=== PATIENT | male | born 1960 | race Caucasian/White ===

== ENCOUNTER 2017-11-04 23:40 | Emergency (ER) | payer OTHER ==
[~2017-11-04 23:40] MED LIST: Norepinephrine 4 MG/4 ML VIAL ONE; Sodium Chloride 0.9% 1,000 ML BAG ONE; Sodium Chloride 0.9% 500 ML BAG ONE
[2017-11-05] MEDS ORDERED: Ibuprofen 800 MG TAB ONE (00:16)
[2017-11-05 00:44] LABS: ALT (SGPT) 12 U/L (8-55); AST (SGOT) 15 U/L (5-34); Albumin 3.3 g/dL (3.5-5.0); Alkaline Phosphatase 66 U/L (40-150); Anion Gap 21 mmol/L (10-20); BUN (Urea Nitrogen) 37 mg/dL (8.4-25.7); Bilirubin, Total 0.9 mg/dL (0.2-1.2); CK (CPK) 664 U/L (30-200); Calc. Creatinine Clearance 0 mL/min (70-130); Calcium 7.6 mg/dL (7.8-10.44); Carbon Dioxide 19 mmol/L (22-29); Chloride 97 mmol/L (98-107); Estimated GFR-MDRD 27; Globulin 1.8 g/dL (2.4-3.5); Glucose 426 mg/dL (70-105); Potassium 3.8 mmol/L (3.5-5.1); Protein, Total 5.1 g/dL (6.0-8.3); Sodium 133 mmol/L (136-145)
[2017-11-05 00:45] LABS: Acetaminophen Less than 6.0 mcg/mL (10.0-30.0); Alcohol Less than 10 mg/dL (Less than 10); CKMB 1.5 ng/mL (0-6.6); Salicylate Less than 8.0 mg/dL (15.0-30.0); Troponin I 0.017 ng/mL (< 0.028)
[2017-11-05] MEDS ORDERED: Norepinephrine 4 MG/4 ML VIAL ONE (00:55)
[2017-11-05 01:02] LABS: Anisocytosis SLIGHT = 6-15 cells (100X) (0-5/hpf); Hemoglobin 10.1 g/dL (14.0-18.0); Lymphocytes 18 % (21-51); MDiff Complete? YES; Mean Corpuscular HGB CONC 32.5 g/dL (32.0-36.0); Mean Corpuscular Hemoglobin 23.8 pg (27.0-31.0); Mean Corpuscular Volume 73.3 fl (80.0-94.0); Mean Platelet Volume 8.1 fL (7.4-10.4); Microcytosis SLIGHT = 6-15 cells (100X) (0-5/hpf); Monocytes 6 % (0-10); Neutrophil 76 % (42-75); PLT Morphology Comment Appears Adequate; Platelet Count 217 thou/uL (130-400); Poikilocytosis SLIGHT = 6-15 cells (100X) (0-5/hpf); RBC Distribution Width 17.9 % (11.5-14.5); RBC Morphology Abnormal; Red Blood Cell (RBC) Count 4.23 mill/uL (4.70-6.10); White Blood Cell (WBC) Count 10.6 thou/uL (4.8-10.8)
[2017-11-05 01:07] LABS: Prothrombin Time 16.1 SEC (12.0-14.7)
[2017-11-05 01:08] LABS: D-Dimer Test 2.64 *mcg/mL (0.27-0.43); PTT 37.7 SEC (22.9-36.1)
[2017-11-05 01:10] LABS: INR-International Normal Ratio 1.3
--- NOTE | 2017-11-05 07:57 | RAD ---
CHEST 1 VIEW: Date: 11/04/17 HISTORY: Altered mental status. COMPARISON: None. FINDINGS: Heart size mildly enlarged. Lungs are slightly hypoinflated with vascular crowding and accentuation o f the pulmonary vasculature. No pneumothorax. No large effusion. IMPRESSION: Mild cardiomegaly and pulmonary venous congestion. POS: C
--- NOTE | 2017-11-05 07:59 | RAD ---
LEFT FOOT 3 VIEWS: HISTORY: Fever. COMPARISON: None. FINDINGS: There are advanced mid foot neuropathic changes. There is collapse of the lateral navicular with sub chondral cyst formation. There are erosions of the talar head and neck with plantar displacement of the talonavicular joint. Large erosions of the medial aspect of the mid foot. There is soft tissue swelling and ulcer formati on. There is also chronic dorsal displacement of the great toe metatarsal phalangeal joint. Prior a mputation of the 2nd toe metacarpal phalangeal joint. IMPRESSION: Severe destructive and erosive changes of the medial aspect of the mid foot with overlying soft tissu e swelling as well as ulcer formation concerning for osteomyelitis superimposed upon neuropathic arth ropathy. MRI may be beneficial if there is clinical uncertainty. POS: DEVAN
[2017-11-05 11:09] LABS: Hemoglobin A1c 5.9 % (4.0-6.0)
== END 2017-11-05 01:10 | disposition short-term general hospital (02) ==
LOC: MADERS 23:40
DX: A41.9 Sepsis, unspecified organism (principal); R65.21 Severe sepsis with septic shock; R41.82 Altered mental status, unspecified; E10.10 Type 1 diabetes mellitus with ketoacidosis without coma; A49.02 Methicillin resistant Staphylococcus aureus infection, unspecified site; K21.9 Gastro-esophageal reflux disease without esophagitis; E78.5 Hyperlipidemia, unspecified; I10 Essential (primary) hypertension; F32.9 Major depressive disorder, single episode, unspecified; Z79.82 Long term (current) use of aspirin; Z79.899 Other long term (current) drug therapy
CPT/HCPCS: 36415; 36416; 71045; 80053; 80307; 82010; 82550; 82553; 83036; 83605; 84484; 85025; 85379; 85610; 85652; 85730; 87040; 87070; 87077; 87186; 87205; 96365; 96375; 99292; J3370; J7050; J7070